=== PATIENT | male | born 1950 | race Caucasian/White ===

== ENCOUNTER 2018-08-29 06:07 | Day surgery (SDC) | payer MEDICARE, BC ==
[~2018-08-29] VITALS: Ht 182.9 cm; Wt 102.1 kg
[~2018-08-29 06:07] MED LIST: AUGMENTIN875TAB OR; BLEPH-10 OPTH.3.5 GM OP; CHERATUSSIN PO; FISH OIL1000 MG PO; LIPITOR10 MG PO; MULTI VIT PO; NEXIUM10 MG PO; PEPCID AC10 MG PO; PRILOSEC20 MG PO; ZOFRAN ODT4 MG PO; ZPAK PO
[2018-08-29 07:40] VITALS: BP 110/55
== END 2018-08-29 07:55 | disposition home or self-care (01) ==
LOC: ENDO 06:07
PROVIDERS: ATTEND Surgery
PROC: 0DJ08ZZ Inspection of Upper Intestinal Tract, Via Natural or Artificial Opening Endoscopic (ICD-10-PCS; principal; 2018-08-29)
PROC: 0DJD8ZZ Inspection of Lower Intestinal Tract, Via Natural or Artificial Opening Endoscopic (ICD-10-PCS; 2018-08-29)
DX: K21.9 Gastro-esophageal reflux disease without esophagitis (principal); Z12.11 Encounter for screening for malignant neoplasm of colon; K57.30 Diverticulosis of large intestine without perforation or abscess without bleeding; Z80.0 Family history of malignant neoplasm of digestive organs
CPT/HCPCS: 43235; G0105

== ENCOUNTER 2019-02-21 00:11 | Emergency (ER) | payer MEDICARE ==
[~2019-02-21] VITALS: Ht 182.9 cm; Wt 104.5 kg
[2019-02-21] MEDS ORDERED: ASPIRIN 81 LOW81 MG PO (00:57)
[2019-02-21 01:31] LABS: HEMATOCRIT 43.7 % (39.0-50.0); HEMOGLOBIN 14.2 g/dl (14.0-18.0); IMMATURE GRANULOCYTES 0.6 % (0.0-5.0); MEAN CELL VOLUME 92.8 fL CALC (80.0-100.0); MEAN CORPUSCULAR HGB 30.1 pG CALC (26.0-32.0); MEAN CORPUSCULAR HGB CONC 32.5 g/L CALC (32.0-36.0); NEUT# 3.73 thou/uL (1.82-7.42); RED BLOOD COUNT 4.71 mill/uL (4.70-6.10)
[2019-02-21 01:38] LABS: ANION GAP 13 (6-22 (CALC)); BUN 26 mg/dL (8-23); BUN/CREATININE RATIO 21 (12-20 (CALC)); CARBON DIOXIDE 25 mmol/l (22-30); CHLORIDE 109 mmol/l (95-108); CREATININE 1.3 mg/dL (0.7-1.3); GFR 55 ML/MIN (>=60 (CALC)); GFR FOR AFR.AMER. > 60 ML/MIN (>=60 (CALC)); POTASSIUM 4.2 mmol/l (3.5-5.1); SODIUM 143 mmol/l (137-146)
[2019-02-21 01:39] LABS: ACT PARTIAL THROMBO TIME 26.9 SECONDS (20.0-32.5)
[2019-02-21] MEDS ORDERED: VOLTAREN - GENE75 MG PO (01:47)
[2019-02-21] MEDS ORDERED: TRAMADOL HCL50 MG PO (01:47)
[2019-02-21 01:58] VITALS: BP 129/68
== END 2019-02-21 02:06 | disposition home or self-care (01) ==
LOC: ED 00:11
PROVIDERS: Family Medicine
DX: S86.911A Strain of unspecified muscle(s) and tendon(s) at lower leg level, right leg, initial encounter (principal); M79.661 Pain in right lower leg; R22.41 Localized swelling, mass and lump, right lower limb; I25.10 Atherosclerotic heart disease of native coronary artery without angina pectoris